=== PATIENT | female | born 1975 | race Caucasian/White ===

== ENCOUNTER 2017-03-16 07:09 | Emergency (ER) | payer MEDICAID ==
[~2017-03-16] VITALS: Ht 154.9 cm; Wt 72.0 kg
[~2017-03-16 07:09] MED LIST: ASPI81TA3 PO; ATOR20TA38 PO; Acetaminophen PO; FAMO-18 PO; HYDR-906 PO; LISI-525 PO; METF500T PO; UDCOL PO
[2017-03-16 07:12] VITALS: Ht 154.9 cm; Wt 72.0 kg
[2017-03-16] MEDS ORDERED: ONDANSETRON (ODT) 4 MG TAB ODT STA (07:40)
[2017-03-16 07:44] LABS: URINE BLOOD (Dip) POC Negative (NEGATIVE)
[2017-03-16] MEDS ORDERED: ACETAMINOPHEN 325 MG TAB PO ONE (08:00)
--- NOTE | 2017-03-16 08:28 | RADRPT ---
PROCEDURE: CT Brain without contrast. CLINICAL INDICATION: Headache TECHNIQUE: A CT of the brain was performed on a multidetector CT scanner utilizing axial imaging f rom the skull base through the vertex without IV contrast. Multiplanar reformatted images were made . Images were reviewed on a PACS workstation. The CTDIvol is 44 mGy and the DLP is 720 mGycm. COMPARISON: CT head October 27, 2015 FINDINGS: There is no intracranial hemorrhage, mass effect, or midline shift. No extra-axial fluid collection is seen. The ventricles and sulci are normal in size and configuration. The density of the brain is normal, and the baires white matter differentiation appears well-preserved. The visualized paranasal sinuses and osseous structures are grossly unremarkable. IMPRESSION: 1. No evidence of acute intracranial pathology. 2. The brain is normal in appearance. .Farhad Silva MD, Date Time Electronically viewed and signed by .Farhad Silva MD, on 03/16/2017 08:28 .A/
[2017-03-16] MEDS ORDERED: FIORICET PO (08:37)
[2017-03-16] MEDS ORDERED: ONDA8TAB14 PO (08:39)
--- NOTE | 2017-03-16 08:42 | ERD ---
ER Documentation Chief Complaint Date/Time DATE: 03/16/17 TIME: 08:39 Chief Complaint headcahe with nausea/vomiting x 2 days HPI This 41-year-old female complains of a headache and nausea and intermittent vomiting for 2 days. The vomit is nonbilious nonbloody. She points to the bitemporal area in the occipital area this is area of her headache. She denies any photophobia, bowel bladder incontinence, weakness. Patient has history significant for altered level of consciousness and a finding of a subacute CVA approximately 2 years ago. 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 Patient states that she has no residual symptoms. She has a history of hypertension and diabetes. She denies any history of trauma or recent illnesses except possibly a mild URI last week. She denies any urinary complaints. ROS All systems reviewed and are negative except as per history of present illness. Medications Home Meds Active Scripts Ondansetron (Ondansetron Odt) 8 Mg Tab.rapdis, 8 MG PO Q6H Y for NAUSEA AND/OR VOMITING, #8 TAB Prov:DARLYN VELASQUEZ MD 03/16/17 Acetamin/Butalbital/Caffeine* (Fioricet*) [id number] Tab, 1 TAB PO Q6H Y for PAIN, #15 TAB Prov:DARLYN VELASQUEZ MD 03/16/17 Famotidine* (Pepcid*) 20 Mg Tablet, 20 MG PO BID for 14 Days, TAB Prov:JULIANA WISDOM 07/10/16 Hydrocodone/Acetaminophen ([place] 5-325 Tablet) 1 Each Tablet, 1 TAB PO Q6H Y for PAIN, #20 TAB Prov:JULIANA WISDOM 07/10/16 [Acetaminophen] 325 MG TAB No Conflict Check, 500 MG PO Q4H Y for HEADACHE, TAB Prov:HAMM,TOÑITO Thee. PERFORMANCE TEST ENGINEER 11/08/15 Metformin Hcl (Glucophage) 500 Mg Tab, 500 MG PO WITH DINNER for 30 Days, TAB Prov:HAMM,TOÑITO V. PERFORMANCE TEST ENGINEER 11/08/15 Lisinopril* (Zestril*) 20 Mg Tab, 20 MG PO DAILY for 30 Days, TAB Prov:HAMMTOÑITOMITRA Mcmillan PERFORMANCE TEST ENGINEER 2/9/16 Docusate Sodium* (Docusate Sodium* Liq) 100 Mg/10 Ml Soln, 100 MG PO BID for 30 Days Prov:HAMM,TOÑITO V. PERFORMANCE TEST ENGINEER 11/01/15 Atorvastatin Calcium* (Atorvastatin Calcium*) 20 Mg Tab, 80 MG PO HS for 30 Days , TAB Prov:HAMM,TOÑITO V. PERFORMANCE TEST ENGINEER 11/01/15 Aspirin (Aspirin) 81 Mg Chew, 81 MG PO DAILY for 30 Days, TAB Prov:HAMM,TOÑTIO V. PERFORMANCE TEST ENGINEER 11/01/15 Allergies Allergies: Coded Allergies: No Known Allergy (Unverified , 07/10/16) PMhx/Soc History of Surgery: Yes (breast reduction and ) Anesthesia Reaction: No Hx Neurological Disorder: Yes (stroke) Hx Respiratory Disorders: No Hx Cardiac Disorders: No Hx Psychiatric Problems: No Hx Miscellaneous Medical Probl: Yes (DM, htn) Hx Alcohol Use: No Hx Substance Use: No Hx Tobacco Use: No Smoking Status: Never smoker Physical Exam Vitals Vital Signs Date Time Temp Pulse Resp B/P Pulse Ox O2 Delivery O2 Flow Rate FiO2 03/16/17 07:12 98.2 89 18 145/92 96 Physical Exam Const: [], no apparent distress. Head: Atraumatic Eyes: Normal Conjunctiva. Eyes are PERRLA and extraocular movements intact. ENT: Normal External Ears, Nose and Mouth. Neck: Full range of motion..~ No meningismus. Resp: Clear to auscultation bilaterally Cardio: Regular rate and rhythm, no murmurs Abd: Soft, non tender, non distended. Normal bowel sounds Skin: No petechiae or rashes Back: No midline or flank tenderness Ext: No cyanosis, or edema Neur: Awake and alert. Cranial nerves II through XII grossly intact. Normal gait. No cerebellar signs and negative Romberg. Psych: Normal Mood and Affect Results 24 hrs Laboratory Tests Test 03/16/17 07:48 Bedside Urine pH (LAB) 5.5 Bedside Urine Protein (LAB) 1+ Bedside Urine Glucose (UA) Negative Bedside Urine Ketones (LAB) Trace Bedside Urine Blood Negative Bedside Urine Nitrite (LAB) Negative Bedside Urine Leukocyte Esterase (L Negative Current Medications Medications (Trade) Dose Ordered Sig/Kush Route PRN Reason Start Time Stop Time Status Last Admin Dose Admin Ondansetron HCl (Zofran Odt) 8 mg ONCE STAT ODT 03/16/17 07:40 03/16/17 07:42 DC 03/16/17 07:47 Acetaminophen (Tylenol Tab) 650 mg ONCE ONCE PO 03/16/17 08:00 03/16/17 08:01 DC 03/16/17 07:46 Procedures/MDM Patient is given Tylenol 650 mg by mouth. Patient urine which is negative for leukocytes, glucose nitrites. Given the patient's history CT brain was performed which was read as normal by the radiologist. Patient presents with signs and symptoms of appeared to be a tension headache given the location. Is no current signs or symptoms of neurologic deficit, bleeding, ischemia, meningitis. She will treated with Fioricet and further observation at home. The patient was stable with no new complaints during the ER course. Clinically, there is no current evidence to suggest meningitis, sepsis, acute abdomen, pneumonia, acute coronary syndrome, pulmonary embolism, or any other emergent condition appearing to require further evaluation or hospitalization. The patient should certainly return for any new or worsening symptoms per the aftercare instructions. They should otherwise follow-up with her primary care doctor for reevaluation this week. Departure Diagnosis: Primary Impression: Headache Headache type: unspecified Headache chronicity pattern: unspecified pattern Intractability: not intractable Qualified Code: R51 - Nonintractable headache, unspecified chronicity pattern, unspecified headache type Patient Instructions: Self-Care for Headaches Additional Instructions: Examines normal hoy. Cheque otro vez con mcneill doctor primario en el proximo bates or regresa para mas o nueva simptomas. DARLYN VELASQUEZ MD Mar 16, 2017 08:42
== END 2017-03-16 08:59 | disposition home or self-care (01) ==
LOC: FTE 07:09
DX: R51 Headache (principal); R11.2 Nausea with vomiting, unspecified; I10 Essential (primary) hypertension; E11.9 Type 2 diabetes mellitus without complications; Z79.84 Long term (current) use of oral hypoglycemic drugs; Z79.82 Long term (current) use of aspirin
CPT/HCPCS: 70450; 81003; Z7502; Z7610

== ENCOUNTER 2017-11-01 16:48 | Emergency (ER) | END 2017-11-01 19:26 | disposition home or self-care (01) ==

== ENCOUNTER 2018-08-09 12:50 | Emergency (ER) | END 2018-08-09 15:17 | disposition home or self-care (01) ==

== ENCOUNTER 2019-02-15 06:20 | Emergency (ER) | payer MEDICAID ==
[~2019-02-15] VITALS: Ht 160 cm; Wt 76.7 kg
[~2019-02-15 06:20] MED LIST changes: +ASPI-831 PO; -ASPI81TA3 PO; +D-ME473S2 PO; +DOCU50LI23 PO; -FAMO-18 PO; +FAMO-96 PO; +FIORICET PO; +FLUT9.9S NASAL; +HYDR-4011 PO; -HYDR-906 PO; +IBUP-1542 PO; +ONDA8TAB14 PO; -UDCOL PO
[2019-02-15 06:31] VITALS: PULSE 68; RESP 18; Ht 160 cm; Wt 76.7 kg
[2019-02-15] MEDS ORDERED: ONDANSETRON 4 MG INJ IV STA (07:29)
[2019-02-15] MEDS ORDERED: LIDOCAINE/MYLANTA 40 ML BTL PO STA (07:29)
[2019-02-15] MEDS ORDERED: FAMO-96 PO (08:48)
[2019-02-15] MEDS ORDERED: ONDA4TAB14 PO (08:48)
[2019-02-15 08:55] VITALS: BP 139/80
--- NOTE | 2019-02-15 16:52 | ERD ---
ER Documentation Chief Complaint Chief Complaint mid abd pain with nausea/vomiting x 2 days HPI Patient is a 43-year-old female with past medical history of hypertension, DM type II, hyperlipidemia, presents to the ER for concerns of epigastric pain for the last 2 days. Patient states she vomited twice this morning. Vomit was non bloody, nonbilious. Patient denies any fevers or chills. Patient states the pain is burning in nature. Patient denies any chest pain or shortness of breath. Patient admits to spicy food intake. Patient states that she takes Advil PM daily for her chronic back pain. Patient denies any urinary symptoms. Patient has a past surgical history of cholecystectomy and ROS All systems reviewed and are negative except as per history of present illness. Medications Home Meds Active Scripts Ondansetron (Ondansetron Odt) 4 Mg Tab.rapdis, 4 MG PO Q6H PRN for NAUSEA AND/OR VOMITING, #10 TAB Prov:MIKE RODRIGUEZ PA-C 02/15/19 Famotidine* (Pepcid*) 20 Mg Tablet, 20 MG PO BID for 30 Days, TAB Prov:MIKE RODRIGUEZ PA-C 02/15/19 Dextromethorphan Hb-Promethazine Hcl* (Promethazine DM* Syrup) 473 Ml Syrup, 5 ML PO Q6 PRN for COUGH, #120 ML Prov:KELLI LUGO PA-C 11/01/17 Fluticasone Propionate (Flonase Allergy Relief) 9.9 Ml [place].susp, 1 SPRAY NASAL BID, #1 BOTTLE TO EACH NOSTRIL Prov:KELLI LUGO PA-C 11/01/17 Ibuprofen* (Motrin*) 600 Mg Tab, 600 MG PO Q6, #30 TAB Prov:KELLI LUGO PA-C 11/01/17 Ondansetron (Ondansetron Odt) 8 Mg Tab.rapdis, 8 MG PO Q6H PRN for NAUSEA AND/OR VOMITING, #8 TAB Prov:DARLYN VELASQUEZ MD 03/16/17 Acetamin/Butalbital/Caffeine* (Fioricet*) [id number] Tab, 1 TAB PO Q6H PRN for PAIN, #15 TAB Prov:DARLYN VELASQUEZ MD 03/16/17 Famotidine* (Pepcid*) 20 Mg Tablet, 20 MG PO BID for 14 Days, TAB Prov:JULIANA WISDOM C 07/10/16 Hydrocodone/Acetaminophen ([place] 5-325 Tablet) 1 Each Tablet, 1 TAB PO Q6H PRN for PAIN, #20 TAB Prov:JULIANA WISDOM C 07/10/16 [Acetaminophen] 325 MG TAB No Conflict Check, 500 MG PO Q4H PRN for HEADACHE, TAB Prov:HAMM,TOÑITO V. BAND SINGER 11/08/15 Metformin Hcl (Glucophage) 500 Mg Tab, 500 MG PO WITH DINNER for 30 Days, TAB Prov:HAMM,TOÑITO V. BAND SINGER 11/08/15 Lisinopril* (Zestril*) 20 Mg Tab, 20 MG PO DAILY for 30 Days, TAB Prov:HAMM,TOÑITO V. BAND SINGER 11/01/15 Docusate Sodium* (Docusate Sodium* Liq) 100 Mg/10 Ml Soln, 100 MG PO BID for 30 Days Prov:HAMM,TOÑITO V. BAND SINGER 11/01/15 Atorvastatin Calcium* (Atorvastatin Calcium*) 20 Mg Tab, 80 MG PO HS for 30 Days, TAB Prov:HAMM,TOÑITO V. BAND SINGER 11/01/15 Aspirin (Aspirin) 81 Mg Chew, 81 MG PO DAILY for 30 Days, TAB Prov:HAMM,TOÑITO V. BAND SINGER 11/01/15 Allergies Allergies: Coded Allergies: No Known Allergy (Unverified , 07/10/16) PMhx/Soc History of Surgery: Yes (breast reduction and ) Anesthesia Reaction: No Hx Neurological Disorder: Yes (stroke) Hx Respiratory Disorders: No Hx Cardiac Disorders: No Hx Psychiatric Problems: No Hx Miscellaneous Medical Probl: Yes (DM, htn) Hx Alcohol Use: No Hx Substance Use: No Hx Tobacco Use: No Smoking Status: Never smoker FmHx Family History: diabetes Physical Exam Vitals Vital Signs Date Temp Pulse Resp B/P (MAP) Pulse Ox O2 O2 Flow FiO2 Time Delivery Rate 02/15/19 139/80 08:55 (99) 02/15/19 97.9 68 18 140/80 96 06:31 (100) Physical Exam GENERAL: Well-developed, well-nourished female. Appears in no acute distress. HEAD: Normocephalic, atraumatic. EYES: Pupils are equally reactive bilaterally. EOMs grossly intact. No conjunctival erythema. NECK: Supple. No meningismus. Normal range of motion of the neck. LUNG: Clear to auscultation bilaterally. No rhonchi, wheezing, rales or coarse breath sounds. HEART: Regular rate and rhythm. No murmurs, rubs or gallops. ABDOMEN: Soft, and nondistended. Tender to palpation in the epigastric region. Positive bowel sounds in all four quadrants. No rebound tenderness, no guarding. (-) McBurney's point tenderness. No CVA tenderness. BACK: No midline tenderness. EXTREMITIES: Equal pulses bilaterally. No peripheral clubbing, cyanosis or edema. No unilateral leg swelling. NEUROLOGIC: Alert and oriented. Moving all four extremities without any difficulty. Normal speech. Steady gait. SKIN: Normal color. Warm and dry. No rashes or lesions. Result Diagram: 02/15/19 0737 02/15/19 0737 Results 24 hrs Laboratory Tests Test 02/15/19 07:37 02/15/19 07:41 White Blood Count 9.4 10^3/ul Red Blood Count 5.02 10^6/ul Hemoglobin 13.9 g/dl Hematocrit 41.8 % Mean Corpuscular Volume 83.3 fl Mean Corpuscular Hemoglobin 27.7 pg Mean Corpuscular Hemoglobin Concent 33.3 g/dl Red Cell Distribution Width 13.1 % Platelet Count 418 10^3/UL Mean Platelet Volume 9.1 fl Immature Granulocytes % 0.400 % Neutrophils % 70.0 % Lymphocytes % 22.1 % Monocytes % 5.2 % Eosinophils % 2.1 % Basophils % 0.2 % Nucleated Red Blood Cells % 0.0 /100WBC Immature Granulocytes # 0.040 10^3/ul Neutrophils # 6.6 10^3/ul Lymphocytes # 2.1 10^3/ul Monocytes # 0.5 10^3/ul Eosinophils # 0.2 10^3/ul Basophils # 0.0 10^3/ul Nucleated Red Blood Cells # 0.0 10^3/ul Urine Color STRAW Urine Clarity CLEAR Urine pH 6.0 Urine Specific [place] 1.016 Urine Ketones NEGATIVE mg/dL Urine Nitrite NEGATIVE mg/dL Urine Bilirubin NEGATIVE mg/dL Urine Urobilinogen NEGATIVE mg/dL Urine Leukocyte Esterase NEGATIVE Veronica/ul Urine Microscopic RBC 0 /HPF Urine Microscopic WBC 1 /HPF Urine Squamous Epithelial Cells FEW /HPF Urine Bacteria FEW /HPF Urine Hemoglobin NEGATIVE mg/dL Urine Glucose NEGATIVE mg/dL Urine Total Protein NEGATIVE mg/dl Sodium Level 141 mmol/L Potassium Level 5.2 mmol/L Chloride Level 105 mmol/L Carbon Dioxide Level 27 mmol/L Anion Gap 9 Blood Urea Nitrogen 19 mg/dl Creatinine 0.66 mg/dl Est Glomerular Filtrat Rate mL/min > 60 mL/min Glucose Level 112 mg/dl Calcium Level 9.8 mg/dl Total Bilirubin 0.3 mg/dl Direct Bilirubin 0.00 mg/dl Indirect Bilirubin 0.3 mg/dl Aspartate Amino Transf (AST/SGOT) 28 IU/L Alanine Aminotransferase (ALT/SGPT) 27 IU/L Alkaline Phosphatase 98 IU/L Troponin I < 0.012 ng/ml Total Protein 7.9 g/dl Albumin 4.8 g/dl Globulin 3.10 g/dl Albumin/Globulin Ratio 1.54 Lipase 117 U/L POC Beta HCG, Qualitative NEGATIVE Current Medications Medications Dose Sig/Kush Start Time Status Last (Trade) Ordered Route PRN Stop Time Admin Dose Reason Admin Ondansetron 4 mg ONCE STAT 02/15/19 DC 02/15/19 HCl (Zofran IV 07:29 07:42 Inj) 02/15/19 07:31 40 ml ONCE STAT 02/15/19 DC 02/15/19 Miscellaneous PO 07:29 07:42 Medication 02/15/19 07:31 (Gi Cocktail (2)) Procedures/MDM ED COURSE: The patient was stable throughout ED course. I kept the patient and/or family informed of laboratory and diagnostic imaging results throughout the ED course. EKG: Read by Dr. Castro, attending physician. EKG shows normal sinus rhythm at a rate of [address] elevations were noted. MEDICATIONS GIVEN: GI cocktail Patient tolerated medication well with no adverse reactions. Patient reported improvement in pain. MEDICAL DECISION MAKING: This is a 43-year-old female with past medical history of DM type II, hypertension, hyperlipidemia who presents the ER for concerns of epigastric pain associated with nausea and vomiting. Patient has a history of cholecystectomy. Vital signs were reviewed. Patient is afebrile. Patient was not hypoxic. Blood work was obtained. CBC showed no evidence of systemic infection or severe anemia. CMP showed no evidence of severe electrolyte abnormalities, severe acidosis, alkalosis, renal failure, or liver disease. Troponin was negative. Lipase showed no evidence of acute pancreatitis. UA showed no evidence of acute infection or hematuria. Urine test was negative. EKG showed normal sinus rhythm. No ST elevations. Patient was given a GI cocktail and Zofran. Upon reexamination, patient reports significant improvement in symptoms. Patient was advised to avoid taking Advil PM daily as this is likely contributing to her symptoms. Patient likely has gastritis versus GERD. Patient advised to follow-up with GI specialist. Dietary changes advised. Differential diagnosis includes but was not limited to acute coronary syndrome, AAA, mesenteric ischemia, lower lobe pneumonia, DKA, bowel perforation, cholecystitis, choledocholithiasis, ascending cholangitis, hepatic abscess, pancreatitis, gastritis, GERD, splenic rupture, diverticulitis, UTI, pyelonephritis, nephrolithiasis, appendicitis, constipation, , ectopic , PID, ovarian torsion or tubo-ovarian abscess. PRESCRIPTIONS: Pepcid DISCHARGE: At this time, patient is stable for discharge and outpatient management. I have instructed the patient to follow-up with his/her primary care physician in 1-2 days. I have instructed the patient to promptly return to the ER at any time for any new or worsening symptoms including increased pain, nausea, vomiting, diarrhea, fever, weakness or LOC. The patient and/or family expressed understanding of and agreement with this plan. All questions were answered. Home care instructions were provided. Disclaimer: Inadvertent spelling and grammatical errors are likely due to EHR/dictation software use and do not reflect on the overall quality of patient care. Also, please note that the electronic time recorded on this note does not necessarily reflect the actual time of the patient encounter. Departure Diagnosis: Primary Impression: Epigastric pain Additional Impression: Vomiting Condition: Fair Patient Instructions: Gerd (Adult), Epigastric Pain (Uncertain Cause) Referrals: SASCHA REILLY MD, NAGARAJ M MD CHITAYAT, RON DANESHGAR,MEAGAN BLAKE,ALONDRA QUINN,MARITZA MERRITT MD,JOHNATHON BURK Additional Instructions: No amy Advil PM. Llame al doctor de GI MAANA y jada charanjit FRANKIE PARA DENTRO DE 1-2 JAVIER.Dgale a la secretaria que nosotros le instruimos hacer esta frankie.Avise o llame si mcneill condicin se empeora antes de la frankie. Regresa aqui si peor o no mejor. MIKE RODRIGUEZ PA-C February 15, 2019 16:52
== END 2019-02-15 08:56 | disposition home or self-care (01) ==
LOC: FTE 06:20
DX: R10.13 Epigastric pain (principal); E11.9 Type 2 diabetes mellitus without complications; I10 Essential (primary) hypertension; Z79.82 Long term (current) use of aspirin; Z79.84 Long term (current) use of oral hypoglycemic drugs
CPT/HCPCS: 80053; 81003; 81025; 83690; 84484; 85025; 93005; J2405; Z7610; 36415; 96374

== ENCOUNTER 2019-04-18 08:30 | Emergency (ER) | payer MEDICAID ==
[~2019-04-18] VITALS: Ht 157.5 cm; Wt 75.8 kg
[~2019-04-18 08:30] MED LIST changes: +ACET500C5 PO; +CEPH-442 PO; +CEPH-443 PO; +ONDA4TAB14 PO
[2019-04-18 08:34] VITALS: Ht 157.5 cm; Wt 75.8 kg
[2019-04-18] MEDS ORDERED: SOD CHLORIDE 0.9% 1,000 ML IV STA (09:03)
[2019-04-18] MEDS ORDERED: ONDANSETRON 4 MG INJ IV STA (09:03)
[2019-04-18 09:29] VITALS: RESP 18
[2019-04-18 11:42] VITALS: BP 105/57; PULSE 75
[2019-04-18] MEDS ORDERED: ACETAMINOPHEN 500 MG TAB PO STA (11:48)
[2019-04-18] MEDS ORDERED: CEFTRIAXONE 1 GM/50 ML (PMX) 50 ML IVPB ONE (12:00)
--- NOTE | 2019-04-18 16:00 | ERD ---
ER Documentation Chief Complaint Chief Complaint multiple complaints, bodyache and not feeling well HPI Patient is a 43-year-old female, past medical history of hypertension, hyperlipidemia, CVA 3 years ago, who presents to the ER for concerns of generalized body aches and "not feeling well". Patient states yesterday she is unsure if she passed out. Patient states she was at home walking when she started to feel dizzy and weak and began to lay down on her bed. She states next thing she knew she woke up on her bed. Patient denies falling onto the flooror waking up on the floor. Patient states since that time she has had a mild headache. Patient states she also does feel dizzy occasionally. Patient reports a room spinning sensation which is worse with positional changes. Patient denies any unilateral weakness, slurred speech, difficulty ambulating, visual changes, difficulty swallowing. Patient denies any chest pain or shortness of breath. Patient states today she went to work and she started to feel faint again so she presents to the ER. Patient reports feeling nauseous however she denies any vomiting. Patient denies any abdominal pain, chest pain, shortness of breath, leg pain or swelling. ROS All systems reviewed and are negative except as per history of present illness. Medications Home Meds Active Scripts Cephalexin* (Keflex*) 250 Mg Capsule, 250 MG PO Q6 for 5 Days, #20 CAP Prov:MIKE RODRIGUEZ PA-C 04/18/19 Acetaminophen* (Tylophen*) 500 Mg Capsule, 1 CAP PO Q6H PRN for PAIN AND OR ELEVATED TEMP, #20 CAP Prov:MIKE RODRIGUEZ PA-C 04/18/19 Ondansetron (Ondansetron Odt) 4 Mg Tab.rapdis, 4 MG PO Q6H PRN for NAUSEA AND/OR VOMITING, #10 TAB Prov:MIKE RODRIGUEZ PA-C 02/15/19 Famotidine* (Pepcid*) 20 Mg Tablet, 20 MG PO BID for 30 Days, TAB Prov:MIKE RODRIGUEZ PA-C 02/15/19 Dextromethorphan Hb-Promethazine Hcl* (Promethazine DM* Syrup) 473 Ml Syrup, 5 ML PO Q6 PRN for COUGH, #120 ML Prov:KELLI LUGO PA-C 11/01/17 Fluticasone Propionate (Flonase Allergy Relief) 9.9 Ml [place].susp, 1 SPRAY NASAL BID, #1 BOTTLE TO EACH NOSTRIL Prov:KELLI LUGO PA-C 11/01/17 Ibuprofen* (Motrin*) 600 Mg Tab, 600 MG PO Q6, #30 TAB Prov:KELLI LUGO PA-C 11/01/17 Ondansetron (Ondansetron Odt) 8 Mg Tab.rapdis, 8 MG PO Q6H PRN for NAUSEA AND/OR VOMITING, #8 TAB Prov:DARLYN VELASQUEZ MD 03/16/17 Acetamin/Butalbital/Caffeine* (Fioricet*) [id number] Tab, 1 TAB PO Q6H PRN for PAIN, #15 TAB Prov:DARLYN VELASQUEZ MD 03/16/17 Famotidine* (Pepcid*) 20 Mg Tablet, 20 MG PO BID for 14 Days, TAB Prov:JULIANA WISDOM 07/10/16 Hydrocodone/Acetaminophen ([place] 5-325 Tablet) 1 Each Tablet, 1 TAB PO Q6H PRN for PAIN, #20 TAB Prov:JULIANA WISDOM 07/10/16 [Acetaminophen] 325 MG TAB No Conflict Check, 500 MG PO Q4H PRN for HEADACHE, TAB Prov:TOÑITO HAMM V. STOCK LIFTER 11/08/15 Metformin Hcl (Glucophage) 500 Mg Tab, 500 MG PO WITH DINNER for 30 Days, TAB Prov:HAMMTOÑITO V. STOCK LIFTER 11/08/15 Lisinopril* (Zestril*) 20 Mg Tab, 20 MG PO DAILY for 30 Days, TAB Prov:HAMMTOÑITO V. STOCK LIFTER 11/01/15 Docusate Sodium* (Docusate Sodium* Liq) 100 Mg/10 Ml Soln, 100 MG PO BID for 30 Days Prov:TOÑITO HAMM V. STOCK LIFTER 11/01/15 Atorvastatin Calcium* (Atorvastatin Calcium*) 20 Mg Tab, 80 MG PO HS for 30 Days, TAB Prov:HAMMTOÑITO V. STOCK LIFTER 11/01/15 Aspirin (Aspirin) 81 Mg Chew, 81 MG PO DAILY for 30 Days, TAB Prov:TOÑITO HAMM V. STOCK LIFTER 11/01/15 Allergies Allergies: Coded Allergies: No Known Allergy (Unverified , 07/10/16) PMhx/Soc History of Surgery: Yes (breast reduction and ,CHOLECYSTECTOMY) Anesthesia Reaction: No Hx Neurological Disorder: Yes (stroke) Hx Respiratory Disorders: No Hx Cardiac Disorders: Yes (HTN,HYPERCHOLESTEROLEMIA) Hx Psychiatric Problems: No Hx Miscellaneous Medical Probl: Yes Hx Alcohol Use: No Hx Substance Use: No Hx Tobacco Use: No FmHx Family History: No diabetes Physical Exam Vitals Physical Exam GENERAL: Well-developed, well-nourished female. Appears in no acute distress. Speaking in full sentences HEAD: Normocephalic, atraumatic. No deformities or ecchymosis. EYE: Pupils equal, round, and reactive to light. EOMs intact. No conjunctival erythema. No eye discharge. ENT: External ear without any masses or tenderness. Auditory canals clear bilaterally. TM visualized bilaterally, non-erythematous, non-bulging. Nasal mucosa pink with no discharge. Oropharynx is pink without any tonsillar erythema or exudates. No uvula deviation. No kissing tonsils. NECK: Supple. No meningismus. Normal ROM of the neck. LUNG: Clear to auscultation bilaterally. No rhonchi, wheezing, rales or coarse breath sounds. HEART: Regular rate and rhythm. No murmurs, rubs or gallops. ABDOMEN: Soft, nontender, and nondistended. Positive bowel sounds in all four quadrants. No rebound tenderness, no guarding. (-) McBurney's point tenderness. No CVA tenderness. EXTREMITES: Equal pulses bilaterally. No peripheral clubbing, cyanosis or edema. No unilateral leg swelling. NEUROLOGIC: Alert and oriented to person, place and time. Cranial nerves II through XII intact. Equal technical publications writer strength bilaterally. Moving all four extremities. 5/5 strength in all extremities. Normal speech. Steady gait. SKIN: Normal color. Warm and dry. No rashes or lesions. Results 24 hrs Laboratory Tests Test 04/18/19 09:16 04/18/19 09:18 White Blood Count 14.0 10^3/ul Red Blood Count 4.98 10^6/ul Hemoglobin 13.7 g/dl Hematocrit 41.9 % Mean Corpuscular Volume 84.1 fl Mean Corpuscular Hemoglobin 27.5 pg Mean Corpuscular Hemoglobin Concent 32.7 g/dl Red Cell Distribution Width 12.8 % Platelet Count 352 10^3/UL Mean Platelet Volume 9.2 fl Immature Granulocytes % 0.600 % Neutrophils % 84.4 % Lymphocytes % 7.4 % Monocytes % 6.0 % Eosinophils % 1.2 % Basophils % 0.4 % Nucleated Red Blood Cells % 0.0 /100WBC Immature Granulocytes # 0.080 10^3/ul Neutrophils # 11.8 10^3/ul Lymphocytes # 1.0 10^3/ul Monocytes # 0.8 10^3/ul Eosinophils # 0.2 10^3/ul Basophils # 0.1 10^3/ul Nucleated Red Blood Cells # 0.0 10^3/ul Urine Color LAST Urine Clarity CLOUDY Urine pH 5.0 Urine Specific [place] 1.019 Urine Ketones NEGATIVE mg/dL Urine Nitrite NEGATIVE mg/dL Urine Bilirubin NEGATIVE mg/dL Urine Urobilinogen 1+ mg/dL Urine Leukocyte Esterase NEGATIVE Veronica/ul Urine Microscopic RBC 2 /HPF Urine Microscopic WBC 32 /HPF Urine Squamous Epithelial Cells MANY /HPF Urine Bacteria FEW /HPF Urine Granular Casts FEW /HPF Urine Mucus MODERATE /HPF Urine Hemoglobin NEGATIVE mg/dL Urine Glucose NEGATIVE mg/dL Urine Total Protein 2+ mg/dl Sodium Level 142 mmol/L Potassium Level 4.4 mmol/L Chloride Level 100 mmol/L Carbon Dioxide Level 30 mmol/L Anion Gap 12 Blood Urea Nitrogen 14 mg/dl Creatinine 1.01 mg/dl Est Glomerular Filtrat Rate mL/min 59 mL/min Glucose Level 147 mg/dl Calcium Level 10.2 mg/dl Total Bilirubin 0.6 mg/dl Direct Bilirubin 0.00 mg/dl Indirect Bilirubin 0.6 mg/dl Aspartate Amino Transf (AST/SGOT) 218 IU/L Alanine Aminotransferase (ALT/SGPT) 175 IU/L Alkaline Phosphatase 150 IU/L Troponin I < 0.012 ng/ml Total Protein 7.6 g/dl Albumin 4.5 g/dl Globulin 3.10 g/dl Albumin/Globulin Ratio 1.45 Lipase 67 U/L POC Beta HCG, Qualitative NEGATIVE Current Medications Medications Dose Sig/Kush Start Time Status Last (Trade) Ordered Route PRN Stop Time Admin Dose Reason Admin Sodium 1,000 ml @ Q1H STAT 04/18/19 DC 04/18/19 Chloride 1,000 mls/hr IV 09:03 09:21 04/18/19 10:02 Ondansetron 4 mg ONCE STAT 04/18/19 DC 04/18/19 HCl (Zofran IV 09:03 09:21 Inj) 04/18/19 09:07 1,000 mg ONCE STAT 04/18/19 DC 04/18/19 Acetaminophen PO 11:48 11:51 (Tylenol 04/18/19 11:49 Tab) Ceftriaxone 50 ml @ ONCE ONCE 04/18/19 DC 04/18/19 Sodium 100 mls/hr IVPB 12:00 11:57 04/18/19 12:29 Procedures/MDM ED COURSE: The patient was stable throughout ED course. I kept the patient and/or family informed of laboratory and diagnostic imaging results throughout the ED course. EKG: Read by Dr. Douglas, attending physician. EKG shows normal sinus rhythm at a rate of 77 bpm No STEMI DIAGNOSTIC IMAGING: Read by radiologist. Patient: RAY JOLLY : 1975 Age: 43 Sex: F MR #: [id number] DOS: 04/18/19 0903 Ordering MD: MIKE RODRIGUEZ PA-C Location: [facility] Room/Bed: PROCEDURE: XR Chest. CLINICAL INDICATION: syncope TECHNIQUE: Single frontal view the chest is provided for evaluation. COMPARISON: October 29, 2015 FINDINGS: The cardiomediastinal silhouette is within normal limits. The lungs are clear. No signs of pleural fluid or pneumothorax are seen. The osseous structures and soft tissues are unremarkable. IMPRESSION: No evidence for active cardiopulmonary disease. Physician Clayton Date Time Electronically viewed and signed by Physician Clayton on 04/18/2019 09:48 ML/ CC: MIKE RODRIGUEZ PA-C [phone] Patient: RAY JOLLY : 1975 Age: 43 Sex: F MR #: [id number] DOS: 04/18/19 0903 Ordering MD: MIKE RODRIGUEZ PA-C Location: [facility] Room/Bed: PROCEDURE: CT Brain without contrast. CLINICAL INDICATION: Syncope. TECHNIQUE: A CT of the brain without contrast was performed utilizing axial sections from the skull base through the vertex. One or more the following does reduction techniques were utilized: Automated exposure control, adjustment of the mA/ or kV according to patient's size, or use of iterative reconstruction technique. Total exam CTDIvol is 39.29 MGy and DLP is 634 mGy-cm. DICOM images are available. COMPARISON: Brain CT 08/09/2018. FINDINGS: The ventricles and sulci are age-appropriate. There is no intracranial hemorrhage, mass effect or midline shift. No abnormal intra-axial or extra- axial fluid collections are seen. The baires/white matter differentiation is preserved. No acute skull abnormality is noted. There are mild atherosclerosis calcifi cations of cavernous and supraclinoid segments of the internal carotid arteries. The visualized paranasal sinuses are essentially clear. IMPRESSION: 1. No acute intracranial hemorrhage, transcortical infarction or mass effect. 2. Mild intracranial atherosclerotic calcifications. RPTAT: HFN .Joel Coto MD, MD Date Time Electronically viewed and signed by .Joel Coto MD, MD on 04/18/2019 09:34 .N/ CC: MIKE RODRIGUEZ PA-C [phone] Patient: RAY JOLLY : 1975 Age: 43 Sex: F MR #: [id number] DOS: 04/18/19 1009 Ordering MD: MIKE RODRIUGEZ PA-C Location: [facility] Room/Bed: PROCEDURE: US abdomen limited CLINICAL INDICATION: Abdominal pain, prior cholecystectomy. TECHNIQUE: Multiple real-time sonographic images of the right upper quadrant of the abdomen were obtained. COMPARISON: Abdominal sonogram dated 07/10/2016. FINDINGS: Liver parenchymal echogenicity is increased. Liver measures 19.2 cm in length. There is no visible focal liver lesion. There is no intrahepatic biliary ductal dilatation. Common bile duct measures 5 mm in diameter, at the upper limits of normal. Limited Doppler interrogation of main portal vein demonstrates antegrade flow. Gallbladder is absent. No ascites is seen. Visualized neck of the pancreas is unremarkable. Remainder of the pancreas is obscured by the overlying bowel gas. Images of the right kidney demonstrate no hydronephrosis. Right kidney measures 10.2 cm. IMPRESSION: 1. Mild hepatomegaly and diffuse hepatic steatosis. 2. No visible focal liver lesion or biliary ductal dilatation. 3. Absent gallbladder. RPTAT:HAJM Physician Naomie Date Time Electronically viewed and signed by Physician Naomie on 04/18/2019 11:27 RM/ CC: MIKE RODRIGUEZ PA-C [phone] PROCEDURES: None. MEDICATIONS GIVEN: IV fluids, Zofran, Tylenol Patient tolerated medication well with no adverse reactions. Patient reported improvement in pain. MEDICAL DECISION MAKING: Patient is a 43-year-old female, past medical history of hypertension, hyperlipidemia, CVA 3 years ago, presents to the ER for concerns of generalized body aches and not feeling well. Patient was not sure if she had a syncopal episode. Vital signs were reviewed. Patient was afebrile. Patient was not hypoxic. Patient's blood pressure was noted to be 94/60. Case was discussed with supervising physician Dr. Douglas, who advised me on appropriate work-up. IV line was established. Blood work was obtained. CBC showed WBC count of 14. Elevated neutrophil count noted. No evidence of severe anemia. CMP showed no evidence of significant electrolyte abnormalities, severe acidosis, alkalosis. Patient's creatinine was noted to be 1.01. Patient's AST, ALT and alk phos are also noted to be elevated. Troponin was within normal limits. Lipase showed no evidence of acute pancreatitis. Urine test was negative. UA did show positive WBCs. EKG was within normal limits. No STEMI. Reviewed by ED attending. X-ray was unremarkable. CT imaging of the brain was negative for acute fracture findings. Gallbladder ultrasound showed absent gallbladder. Mild hepatomegaly and diffuse hepatic steatosis noted. No biliary ductal dilatation noted. Blood work and imaging studies were discussed with supervising physician Dr. Douglas, agree that patient was stable for outpatient management. At this time, the patient's presentation is most consistent with headache, transaminitis and syncopal episode. Differential diagnosis includes but is not limited to TIA, CVA, focal neurological deficit, PE, arrhythmia, acute coronary syndrome, AAA, mesenteric ischemia, lower lobe pneumonia, DKA, bowel perforation, cholecystitis, choledocholithiasis, ascending cholangitis, hepatic abscess, pancreatitis, PUD, gastritis, GERD, splenic rupture, diverticulitis, UTI, pyelonephritis, nephrolithiasis, appendicitis, constipation, , ectopic , PID, ovarian torsion, sepsis, severe electrolyte abnorma lities, metabolic disorders. Patient was nontoxic, [id number] prior to discharge. Vital signs were reassessed and were within normal limits prior to discharge. DISCHARGE: At this time, patient is stable for discharge and outpatient management. I have instructed the patient to follow-up with his/her primary care physician in 1-2 days. I have instructed the patient to promptly return to the ER at any time for any new or worsening symptoms including increased pain, nausea, vomiting, diarrhea, fever, weakness or LOC. The patient and/or family expressed understanding of and agreement with this plan. All questions were answered. Home care instructions were provided. Disclaimer: Inadvertent spelling and grammatical errors are likely due to EHR/dictation software use and do not reflect on the overall quality of patient care. Also, please note that the electronic time recorded on this note does not necessarily reflect the actual time of the patient encounter. Departure Diagnosis: Primary Impression: Headache Headache type: unspecified Headache chronicity pattern: unspecified pattern Intractability: not intractable Qualified Codes: R51 - Headache Additional Impressions: Episode of syncope Syncope type: unspecified Qualified Codes: R55 - Syncope and collapse UTI (urinary tract infection) Urinary tract infection type: site unspecified Hematuria presence: without hematuria Qualified Codes: N39.0 - Urinary tract infection, site not specified Transaminitis Condition: Fair Patient Instructions: Understanding Urinary Tract Infections (UTIs), Causes of Syncope Additional Instructions: Call your primary care doctor TOMORROW for an appointment during the next 1-2 d ays.See the doctor sooner or return here if your condition worsens before your appointment time. MIKE RODRIGUEZ PA-C Apr 18, 2019 16:00
== END 2019-04-18 12:29 | disposition home or self-care (01) ==
LOC: FTE 08:30
DX: R51 Headache (principal); R55 Syncope and collapse; N39.0 Urinary tract infection, site not specified; R74.0 Nonspecific elevation of levels of transaminase and lactic acid dehydrogenase [LDH]; I10 Essential (primary) hypertension; E03.9 Hypothyroidism, unspecified; Z79.82 Long term (current) use of aspirin; Z86.73 Personal history of transient ischemic attack (TIA), and cerebral infarction without residual deficits; Z79.84 Long term (current) use of oral hypoglycemic drugs
CPT/HCPCS: 70450; 71045; 76705; 80053; 81001; 81025; 83690; 84484; 85025; 87086; 93005; J0696; J2405; J7030; Z7610; 36415; 96361; 96365; 96375